=== PATIENT | female | born 1930 | race Hispanic/Latino ===

== ENCOUNTER 2016-09-03 11:49 | Inpatient (IN) | payer MEDICARE ==
[2016-09-03] MEDS ORDERED: Morphine 2 mg/ml ISec IVP STA (12:08)
--- NOTE | 2016-09-03 12:14 | ED PDOC ---
Arrival/HPI - General Chief Complaint: Finger,Hand,&Wrist Time Seen by Provider: 09/03/16 12:07 Historian: Patient, Family (daughter in law) - History of Present Illness Narrative History of Present Illness (Text): 09/03/16 12:05 This 86 yo female with pmh A-Fib, presents to this ED c/o left wrist injury x 2 hours. Patent stated she has been having left ankle pain x 3 weeks, and she feels this ankle pain caused her to fall. Denies head injury. Patient admits mild sob x 3 weeks. Denies other complains. Denies cp, hemoptysis, abdominal pain, back pain, hip pain, or abnormal gait. Time/Duration: Other (see HPI) Context: Home Past Medical History - Provider Review Nursing Documentation Reviewed: Yes - Reproductive Menopause: No - Cardiac Hx Atrial Fibrillation: Yes Hx Hypertension: Yes - Pulmonary Hx Chronic Obstructive Pulmonary Disease (COPD): Yes - Psychiatric Hx Substance Use: No - Surgical History Hx Appendectomy: Yes Hx Hysterectomy: Yes Family/Social History - Physician Review Nursing Documentation Reviewed: Yes Family/Social History: No Known Family HX Smoking Status: Current Some Days Smoker Hx Alcohol Use: Yes Frequency of alcohol use: Socially Hx Substance Use: No Allergies/Home Meds Allergies/Adverse Reactions: Allergies No Known Allergies Allergy (Verified 09/03/16 11:56) Home Medications: Home Meds Medication Instructions Recorded Confirmed Atenolol [Tenormin] 25 mg PO DAILY 09/03/16 09/03/16 Valsartan/Hydrochlorothiazide 1 tab PO DAILY 09/03/16 09/03/16 [Valsartan-Hctz 80-12.5 mg Tab] Warfarin [Coumadin] 5 mg PO DAILY 09/03/16 09/03/16 amLODIPine [Norvasc] 5 mg PO DAILY 09/03/16 09/03/16 methylPREDNISolone [Medrol] 4 mg PO MWF 09/03/16 09/03/16 Review of Systems - Review of Systems Constitutional: Normal. absent: Fatigue, Weight Change, Fevers Eyes: Normal ENT: Normal Respiratory: SOB. absent: Cough, Sputum Cardiovascular: Normal. absent: Chest Pain, Palpitations, Edema Gastrointestinal: Normal. absent: Abdominal Pain, Nausea, Vomiting Genitourinary Female: Normal. absent: Dysuria, Frequency, Hematuria Musculoskeletal: Other (see hpi) Skin: Normal. absent: Rash Neurological: absent: Headache, Dizziness, Focal Weakness, Gait Changes, Speech Changes, Facial Droop Endocrine: Normal Hemo/Lymphatic: Normal Psychiatric: Normal Physical Exam Vital Signs Temp Pulse Resp BP Pulse Ox 09/03/16 17:00 92 H 18 158/59 H 98 09/03/16 15:00 68 18 135/88 98 09/03/16 13:40 52 L 16 148/59 L 98 09/03/16 11:49 97.9 F 54 L 18 159/89 H 97 Temperature: Afebrile Blood Pressure: Normal Pulse: Regular Respiratory Rate: Normal Appearance: Positive for: Well-Appearing, Non-Toxic, Comfortable Pain Distress: None Mental Status: Positive for: Alert and Oriented X 3 - Systems Exam Head: Present: Atraumatic, Normocephalic Pupils: Present: PERRL Extroacular Muscles: Present: EOMI Conjunctiva: Present: Normal Mouth: Present: Moist Mucous Membranes Neck: Present: Normal Range of Motion. No: Meningeal Signs Respiratory/Chest: Present: Clear to Auscultation, Good Air Exchange. No: Respiratory Distress, Accessory Muscle Use, Wheezes, Retracting, Rhonchi Cardiovascular: Present: Regular Rate and Rhythm, Normal S1, S2. No: Murmurs Abdomen: Present: Normal Bowel Sounds. No: Tenderness, Distention, Peritoneal Signs Back: Present: Normal Inspection. No: CVA Tenderness Upper Extremity: Present: NORMAL PULSES, Tenderness, Swelling, Neurovascularly Intact, Capillary Refill < 2s, Other ((+) Left wrist joint mild deformity). No : Cyanosis, Edema, Erythema Lower Extremity: Present: NORMAL PULSES. No: Edema, CALF TENDERNESS Neurological: Present: GCS=15, CN II-XII Intact, Speech Normal Skin: Present: Warm, Dry, Normal Color. No: Rashes Psychiatric: Present: Alert, Oriented x 3, Normal Insight, Normal Concentration Medical Decision Making ED Course and Treatment: 09/03/16 15:00 Dr. Gleason at bedside. I spoke with Dr. Grace regarding labs, imaging finding. He agrees with admission Re-evaluation Time: 15:50 Reassessment Condition: Re-examined, Improving,but remains with symptoms - Lab Interpretations Microbiology Results: Microbiology Results 09/03/16 14:30 Blood Blood Culture - Preliminary NO GROWTH AFTER 4 DAYS 09/03/16 14:15 Blood Blood Culture - Preliminary NO GROWTH AFTER 4 DAYS Lab Results: 09/03/16 12:41 09/03/16 12:41 Lab Results 09/03/16 14:30: pO2 54, VBG pH 7.40, VBG pCO2 54.0, VBG HCO3 33.4 H, VBG Total CO2 35.1 H, VBG O2 Sat (Calc) 91.1 H, VBG Base Excess 7.0 H, VBG Potassium 3.3 L , Glucose 117 H, Lactate 1.2, FiO2 21.0, Sodium 128.0 L, Chloride 92.0 L, Venous Blood Potassium 3.3 L 09/03/16 12:41: C-React Prot High Sens 1.36 09/03/16 12:41: PT 19.8 H, INR 1.83 H, APTT 33.4 H 09/03/16 12:41: Sodium 128 L, Potassium 3.8, Chloride 87 L, Carbon Dioxide 31, Anion Gap 14, BUN 8, Creatinine 0.5, Est GFR ( Amer) > 60, Est GFR (Non- Af Amer) > 60, Random Glucose 115 H, Calcium 9.4, Total Bilirubin 0.9, AST 41 H , ALT 33, Alkaline Phosphatase 70, Lactate Dehydrogenase 633, Total Creatine Kinase 177, Troponin I < 0.01, NT-Pro-B Natriuret Pep 2040 H, Total Protein 7.5 , Albumin 4.1, Globulin 3.4, Albumin/Globulin Ratio 1.2 09/03/16 12:41: WBC 13.6 H, RBC 4.20, Hgb 13.7, Hct 38.4, MCV 91.4, MCH 32.6, MCHC 35.7, RDW 12.5, Plt Count 368, MPV 9.4, Gran % 85.0 H, Lymph % (Auto) 7.3 L , [place] % (Auto) 7.5 H, Eos % (Auto) 0.1 L, Baso % (Auto) 0.1, Gran # 11.52 H, Lymph # 1.0 L, [place] # 1.0 H, Eos # 0.0, Baso # 0.01, ESR 11 - RAD Interpretation Radiology Orders: 09/03/16 12:08 WRIST, LEFT 3 VIEWS [RAD] Stat 09/03/16 12:13 CHEST PORTABLE [RAD] Stat 09/03/16 14:12 WRIST, LEFT 3 VIEWS [RAD] Stat - Medication Orders Current Medication Orders: Albuterol/Ipratropium (Duoneb 3 Mg/0.5 Mg (3 Ml) Ud) 3 ml IH Q4H PRN PRN Reason: Wheezing Amlodipine Besylate (Norvasc) 5 mg PO DAILY [facility] Last Admin: 09/08/16 09:11 Dose: 5 mg Atenolol (Tenormin) 25 mg PO DAILY [facility] Last Admin: 09/08/16 09:11 Dose: 25 mg Carvedilol (Coreg) 3.125 mg PO BID [facility] Last Admin: 09/08/16 09:09 Dose: 3.125 mg Sodium Chloride (Hypertonic Saline 3%) 500 mls @ 30 mls/hr IV .[id number] [facility] Last Admin: 09/08/16 06:36 Dose: 30 mls/hr Ketorolac Tromethamine (Toradol) 15 mg IM Q6 PRN PRN Reason: pain unrelieved with Percocet Stop: 09/08/16 18:28 Last Admin: 09/07/16 21:27 Dose: 15 mg Magnesium Oxide (Mag-Ox) 400 mg PO BID [facility] Last Admin: 09/08/16 09:10 Dose: 400 mg Methylprednisolone (Medrol) 4 mg PO DAILY [facility] Last Admin: 09/08/16 09:10 Dose: 4 mg Potassium Chloride (Klor-Con 10) 10 meq PO BRK [facility] Last Admin: 09/08/16 09:10 Dose: 10 meq Potassium Chloride (K-Dur 20 Meq Er Tab) 20 meq PO BID [facility] Last Admin: 09/08/16 09:10 Dose: 20 meq Warfarin Sodium (Coumadin) 5 mg PO 1800 [facility]NAZ PRN Reason: Protocol Last Admin: 09/07/16 18:10 Dose: 5 mg Discontinued Medications Bupivacaine HCl (Marcaine 0.5%) 2 ml IJ STAT STA Stop: 09/03/16 13:45 Last Admin: 09/03/16 14:00 Dose: 2 ml Comments: given by Furosemide (Lasix) 20 mg IVP DAILY [facility] Last Admin: 09/04/16 14:00 Dose: 20 mg Hydrochlorothiazide (Microzide) 12.5 mg PO DAILY [facility] Last Admin: 09/04/16 10:22 Dose: 12.5 mg Piperacillin Sod/Tazobactam Sod (Zosyn 3.375 In Ns 100ml) 100 mls @ 200 mls/hr IVPB STAT STA PRN Reason: Protocol Stop: 09/03/16 14:47 Last Admin: 09/03/16 15:19 Dose: 200 mls/hr Sodium Chloride (Hypertonic Saline 3%) 500 mls @ 10 mls/hr IV .Q24H [facility] Lidocaine HCl (Lidocaine 1% (20ml)) Confirm Administered Dose 20 ml .ROUTE .STK- MED ONE Stop: 09/03/16 13:55 Losartan Potassium (Cozaar) 50 mg PO DAILY [facility] Last Admin: 09/06/16 10:58 Dose: 50 mg Morphine Sulfate (Morphine) 2 mg IVP STAT STA Stop: 09/03/16 12:09 Last Admin: 09/03/16 12:28 Dose: 2 mg Re-Assess: [facility] Pain Assessment Document 09/03/16 13:28 [facility] (Rec: 09/03/16 15:22 [facility]-[id number]) Pain Reassessment Is this a pain reassessment? Yes Morphine Sulfate (Morphine) 2 mg IVP Q4H [facility]NAZ Stop: 09/04/16 09:00 Ondansetron HCl (Zofran Inj) 4 mg IVP STAT STA Stop: 09/03/16 12:18 Last Admin: 09/03/16 12:32 Dose: 4 mg Ondansetron HCl (Zofran Inj) 4 mg IVP Q4H [facility]NA[facility] Stop: 09/04/16 09:00 Ondansetron HCl (Zofran Inj) 4 mg IVP Q4H PRN PRN Reason: Nausea/Vomiting Stop: 09/04/16 09:00 Oxycodone/Acetaminophen (Percocet 5/325 Mg Tab) 1 tab PO Q6H PRN PRN Reason: Pain, moderate (4-7) Stop: 09/06/16 18:27 Last Admin: 09/05/16 16:04 Dose: 1 tab Re-Assess: [facility] Pain Assessment Document 09/05/16 17:04 ML[facility] (Rec: 09/05/16 18:13 [email or web address] [id number]) Pain Reassessment Is this a pain reassessment? Yes Presence of Pain Presence of Pain No Oxycodone/Acetaminophen (Percocet 5/325 Mg Tab) 1 tab PO ONCE STA Stop: 09/06/16 21:32 Last Admin: 09/06/16 21:54 Dose: 1 tab Pneumococcal Polyvalent Vaccine (Pneumovax 23 Vaccine) 0.5 ml IM .ONCE ONE Stop: 09/03/16 19:24 Potassium Chloride (Potassium Chloride Oral Soln) 40 meq PO ONCE ONE Stop: 09/05/16 09:16 Last Admin: 09/05/16 09:45 Dose: 40 meq Disposition/Present on Arrival - Present on Arrival Any Indicators Present on Arrival: No History of DVT/PE: No History of Uncontrolled Diabetes: No Urinary Catheter: No History of Decub. Ulcer: No History Surgical Site Infection Following: None - Disposition Have Diagnosis and Disposition been Completed?: Yes Diagnosis: CHF (congestive heart failure), Cellulitis, Colles' fracture of left radius Disposition: HOSPITALIZED Disposition Time: 15:49 Patient Plan: Admission Patient Problems: Current Active Problems Problem Status Onset CHF (congestive heart failure) Acute Cellulitis Acute Colles' fracture of left radius Acute Hyponatremia Acute Atrial fibrillation Chronic COPD (chronic obstructive pulmonary disease) Chronic Hypertension Chronic Condition: STABLE
[2016-09-03 12:57] VITALS: BMI 18.3
[2016-09-03 12:57] LABS: ALB/GLOB RATIO 1.2 (1.1-1.8); ALBUMIN 4.1 g/dL (3.0-4.8); ALT/SGPT 33 U/L (7-56); AST/SGOT 41 U/L (15-39); BLOOD UREA NITROGEN 8 mg/dL (7-21); CALCIUM 9.4 mg/dL (8.4-10.5); GFR AFRICAN-AMERICAN > 60; GFR NON-AFRICAN AMERICAN > 60
[2016-09-03 13:08] LABS: B-TYPE NATRIURETIC PEPTIDE 2040 pg/mL (0-450); INR 1.83 (0.93-1.08); PARTIAL THROMBOPLASTIN TIME 33.4 Seconds (23.7-30.8); PROTHROMBIN TIME 19.8 Seconds (9.9-11.8)
[2016-09-03 13:10] LABS: TROPONIN I < 0.01 ng/mL
[2016-09-03] MEDS ORDERED: Bupivacaine 0.5% Inj(30mL) IJ STA (13:44)
[2016-09-03] MEDS ORDERED: Lidocaine 1% Inj (20ml) ONE (13:54)
[2016-09-03 14:01] LABS: BASO # 0.01 K/mm3 (0.0-2.0); BASO % 0.1 % (0.0-3.0); EOS % 0.1 % (1.5-5.0); GRAN # 11.52 (1.4-6.5); HEMOGLOBIN 13.7 gm/dL (12.0-16.0); LYMPH % 7.3 % (22.0-35.0); MEAN CELL VOLUME 91.4 fL (80.0-105.0); MEAN CORPUSCULAR HEMOGLOBIN 32.6 pg (25.0-35.0); MEAN CORPUSCULAR HGB CONC 35.7 g/dl (31.0-37.0); MEAN PLATELET VOLUME 9.4 fl (7.0-11.0); MONO % 7.5 % (1.0-6.0); PLATELET COUNT 368 10^3/uL (120.0-450.0); RED CELL DISTRIBUTION WIDTH 12.5 % (11.5-14.5); WHITE BLOOD COUNT 13.6 10^3/ul (4.5-11.0)
--- NOTE | 2016-09-03 14:09 | RAD ---
PROCEDURE: Left Wrist Radiographs. HISTORY: pain COMPARISON: None. FINDINGS: BONES: Current study reveals a comminuted/impacted and displaced fracture of the distal left radius. Fracture line extends into the articular surface the radiocarpal articulation. There is also a comminuted probably impacted fracture of the distal left radius. Dorsal displacement of the fracture fragments. Due to overlap fragments there is partial obscuration of the navicular and lunate. The possibility of fracture these carpal bones cannot be excluded. Note also made of tiny on soft tissue calcifications within the dorsal soft tissues possibly representing some old posttraumatic mineralization sequela. Mild diffuse demineralization. JOINTS: Moderate to fairly significant triscaphe DJD as well as DJD of the greater multangular and 1st metacarpal. Multi articular DJD throughout the remainder of the joint spaces particularly the DIP joints consistent with primary osteoarthritis. SOFT TISSUES: Mild moderate diffuse circumferential soft tissue swelling about the wrist OTHER FINDINGS: None. IMPRESSION: Comminuted impacted fractures of the distal radius and ulna with on extension of fracture line into the radiocarpal articulation. There is dorsal displacement of the fracture fragments Multi articular DJD. See above discussion for additional details
[2016-09-03] MEDS ORDERED: Piperacillin/Tazobact 3.375 gm 100 ML IVPB STA (14:18)
[2016-09-03 15:19] LABS: VENOUS BLOOD GAS PO2 54 mm/Hg (30-55)
--- NOTE | 2016-09-03 17:04 | RAD ---
PROCEDURE: Left Wrist Radiographs. Three views of the left wrist performed through a radiopaque cast which obscures fine soft tissue and bone detail. HISTORY: POST REDUCTION COMPARISON: Comparison made with earlier film same day. FINDINGS: BONES: Previously noted comminuted impacted fractures of the distal left radius and ulna again noted. . There is improved anatomic alignment with lesser dorsal angulation of the distal fragments. . JOINTS: Swelling multi articular DJD SOFT TISSUES: Surrounding soft tissue OTHER FINDINGS: None. IMPRESSION: Status post closed reduction fractures of the distal radius and ulna with improved anatomic alignment
[2016-09-03] MEDS ORDERED: Albuterol-Ipratrop 3 mg / 0.5 (3 ml) UD IH PRN (17:09)
[2016-09-03] MEDS ORDERED: Morphine 4 mg/ml ISec IVP SCH (17:15)
[2016-09-03 17:24] LABS: PH,URINE 7.5 (4.7-8.0); URINE BILIRUBIN NEGATIVE (NEGATIVE); URINE BLOOD NEGATIVE (NEGATIVE); URINE GLUCOSE (UA) NEGATIVE (NEGATIVE); URINE LEUKOCYTE ESTERASE TRACE Leu/uL (NEGATIVE); URINE NITRATE NEGATIVE (NEGATIVE); URINE PROTEIN NEGATIVE mg/dL (<30 mg/dL); URINE UROBILINOGEN 0.2 E.U./dL (<1 E.U./dL)
--- NOTE | 2016-09-03 17:24 | RAD ---
HISTORY: Status post fall. COMPARISON: No prior study available comparison. FINDINGS: LUNGS: Note that the examination is slightly limited due to partial obscuration of the medial lung apices by overlying mandible and facial soft tissue artifact. Biapical pleural calcifications could be secondary to calcified granulomata and/or pleural-based right calcifications. Clinical correlation recommended. See anesthesia margin is slightly increasing coarse within few scattered peribronchial cuffing changes. Rule out sequela of reactive/inflammatory airway disease or viral illness. PLEURA: No significant pleural effusion identified, no pneumothorax apparent. CARDIOVASCULAR: Heart appears enlarged. Aorta is slightly ectatic and uncoiled. OSSEOUS STRUCTURES: Mild degenerative osteoarthritis of both shoulder girdles. There also appears to be mild multilevel degenerative spondylosis of the thoracic spine VISUALIZED UPPER ABDOMEN: Normal. OTHER FINDINGS: None. IMPRESSION: Slightly limited due to partial obscuration of the medial lung apices by overlying mandible and facial soft tissue artifact. Biapical pleural calcifications could be secondary to calcified granulomata and/or pleural-based right calcifications. Clinical correlation recommended. See anesthesia margin is slightly increasing coarse within few scattered peribronchial cuffing changes. Rule out sequela of reactive/inflammatory airway disease or viral illness.
[2016-09-03 17:25] LABS: URINE APPEARANCE CLEAR (CLEAR); URINE COLOR YELLOW (YELLOW)
[2016-09-03 17:31] LABS: URINE AMORPHOUS SEDIMENT TRACE
[2016-09-03] MEDS ORDERED: Morphine 2 mg/ml ISec IVP PRN (17:39)
[2016-09-03] MEDS: Oxycodone/Acetaminophen 5/325 mg Tab PO PRN (18:40)
--- NOTE | 2016-09-03 19:05 | CARD ---
APPROVED REPORT EKG Measurement Heart [id number] <Conclusion> Atrial fibrillation with slow ventricular response Q wave in lateral leads Base line artefact, please repeat. Abnormal ECG
[2016-09-03] MEDS ORDERED: Pneumococcal 23-Valent Vaccine IM ONE (19:23)
[2016-09-04] MEDS: Oxycodone/Acetaminophen 5/325 mg Tab PO PRN ×2 (00:35→10:21)
--- NOTE | 2016-09-04 12:31 | CP.PCM.HP ---
History of Present Illness - History of Present Illness History of Present Illness: 86 yo female adm [facility] s/p fall wrist fx. Noted to have bilat peripheral edema and hyponatremia, adm for further eval and mgmt, Denies cp, no sob Present on Admission - Present on Admission Any Indicators Present on Admission: No Review of Systems - Constitutional Constitutional: Weakness - EENT Eyes: Loss of Vision Ears: Decreased Hearing - Cardiovascular Cardiovascular: Pedal Edema - Respiratory Respiratory: Dyspnea on Exertion - Gastrointestinal Gastrointestinal: Change in Bowel Habits - Musculoskeletal Musculoskeletal: Arthralgias - Neurological Neurological: Abnormal Hearing, Weakness Past Patient History - Past Social History Smoking Status: Light Smoker < 10 Cigarettes Daily - CARDIAC Hx Cardia Arrhythmia: Yes (a fib) Hx Hypertension: Yes Hx Peripheral Edema: Yes (left ankle +1) - PULMONARY Hx Chronic Obstructive Pulmonary Disease (COPD): Yes - HEENT Hx HEENT Problems: Yes (eyeglasses) Hx Macular Degeneration: Yes - INTEGUMENTARY Other/Comment: buttocks slightly reddened, b/l arms multiple purpil discolorations, slight redness to left ankle - MUSCULOSKELETAL/RHEUMATOLOGICAL Hx Falls: Yes (fell today) Hx Unsteady Gait: Yes (walker) Other/Comment: left ankle pain, left wrist fx today soft cast with mei wrap intact - PSYCHIATRIC Hx Substance Use: No - SURGICAL HISTORY Hx Appendectomy: Yes Hx Hysterectomy: Yes Meds Allergies/Adverse Reactions: Allergies Allergy/AdvReac Type Severity Reaction Status Date / Time No Known Allergies Allergy Verified 09/03/16 11:56 Physical Exam - Constitutional Appears: No Acute Distress - Head Exam Head Exam: ATRAUMATIC, NORMAL INSPECTION, NORMOCEPHALIC - Eye Exam Eye Exam: EOMI, PERRL - ENT Exam ENT Exam: Normal Exam - Neck Exam Neck exam: Positive for: Full Rom - Respiratory Exam Respiratory Exam: Rales - Cardiovascular Exam Cardiovascular Exam: Irregular Rhythm, REGULAR RHYTHM, Systolic Murmur - GI/Abdominal Exam GI & Abdominal Exam: Normal Bowel Sounds - Back Exam Additional comments: cast/splint rue intact - Neurological Exam Neurological exam: Alert, Oriented x3 - Skin Skin Exam: Dry, Warm Results - Vital Signs Recent Vital Signs: Last Vital Signs Temp 98.6 F 09/04/16 07:26 Pulse 64 09/04/16 10:23 Resp 21 09/04/16 07:26 BP 118/74 09/04/16 10:23 Pulse Ox 92 L 09/04/16 07:26 - Labs Result Diagrams: 09/03/16 12:41 09/03/16 12:41 Labs: Laboratory Results - last 24 hr 09/03/16 17:00 Urine Color Yellow Urine Appearance Clear Urine pH 7.5 Ur Specific [place] 1.010 Urine Protein Negative Urine Glucose (UA) Negative Urine Ketones Trace H Urine Blood Negative Urine Nitrate Negative Urine Bilirubin Negative Urine Urobilinogen 0.2 Ur Leukocyte Esterase Trace H Urine RBC TEST NOT PERFORMED Urine WBC 2 - 5 Ur Epithelial Cells 10 - 12 Amorphous Sediment Trace Assessment & Plan (1) Atrial fibrillation Status: Chronic (2) CHF (congestive heart failure) Status: Acute (3) Cellulitis Status: Acute (4) Colles' fracture of left radius Status: Acute (5) COPD (chronic obstructive pulmonary disease) Status: Chronic (6) Hyponatremia Status: Acute - Date & Time Date: 09/04/16 Time: 11:30
[2016-09-04] MEDS: Potassium Chloride 10 mEq ER Tab PO SCH (13:30)
--- NOTE | 2016-09-04 14:03 | CON ---
EMERGENCY CONSULT AND PROCEDURE REPORT HISTORY OF PRESENT ILLNESS: She is an 86-year-old, I was called as an emergency to see the patient with severely displaced and swollen left distal radius, where she is on Coumadin and she smokes and she has been having numbness of her fingers, accident happened when she fell at home this morning. No loss of consciousness. So, this is an urgent consult in the emergency room with the x-rays showing a severely dorsally displaced fracture with radial deviation and tenting of the skin over the ulnar. We did a hematoma block, put her on traction with the finger traps and with 10 pounds of weight and let it stretch out the distal radius fracture and ulnar fracture to perform ligamentotaxis. Once it looked straight, we did a partial reduction by putting dorsal pressure over the distal radius and palmar pressure on the proximal portion of the fracture until we heard a snap that indicated the fracture went back in place. Then, we put a compression dressing and a coaptation plaster of kathryn cast. X-rays showed improved position of the fracture and good neurovascular status. She had numbness prior to the reduction, but no numbness at this time, but she has extreme ecchymosis, which she is on Coumadin also, so she is being admitted to the medical doctor and watch her closely at [facility] and keep her elevated and observation and told the nurse to watch the circulation every couple of hours. FINAL DIAGNOSES: Dorsally and radially displaced distal left radius fracture and performed ligamentotaxis reduction with hematoma block and coaptation arm cast and follow her closely for the displaced dorsal radial and ulnar fractures with radial deviation. Juan Gleason DO
--- NOTE | 2016-09-05 05:09 | CON ---
An 86-year-old female in the emergency room on 09/03/2016. She had a highly displaced comminuted fracture of left distal radius with dorsal displacement on the lateral view and radial displacement on the AP view without the hematoma block. Because she had extensive ecchymosis, we gave a hematoma block with Marcaine and Xylocaine and did a closed reduction with ligamentotaxis with the help of finger traction, and we accomplished satisfactory reduction. After post-reduction x-rays were shown, we put in a coaptation [facility] splint and she has been admitted to the hospital for followup. FINAL DIAGNOSIS: Highly comminuted dorsally displaced and radially shortening fracture of the nondominant left distal radius. Juan Gleason DO
[2016-09-05 06:54] LABS: ALB/GLOB RATIO 1.2 (1.1-1.8); ALBUMIN 3.2 g/dL (3.0-4.8); ALT/SGPT 26 U/L (7-56); AST/SGOT 42 U/L (15-39); BLOOD UREA NITROGEN 9 mg/dL (7-21); CALCIUM 8.5 mg/dL (8.4-10.5); GFR AFRICAN-AMERICAN > 60; GFR NON-AFRICAN AMERICAN > 60
[2016-09-05 07:33] LABS: BASO # 0.02 K/mm3 (0.0-2.0); BASO % 0.2 % (0.0-3.0); EOS % 0.3 % (1.5-5.0); GRAN # 8.64 (1.4-6.5); GRAN % 77.5 % (50.0-68.0); HEMOGLOBIN 11.6 gm/dL (12.0-16.0); LYMPH # 1.2 (1.2-3.4); LYMPH % 10.9 % (22.0-35.0); MEAN CELL VOLUME 92.3 fL (80.0-105.0); MEAN CORPUSCULAR HEMOGLOBIN 31.9 pg (25.0-35.0); MEAN CORPUSCULAR HGB CONC 34.5 g/dl (31.0-37.0); MEAN PLATELET VOLUME 9.5 fl (7.0-11.0); MONO # 1.2 (0.1-0.6); MONO % 11.1 % (1.0-6.0); PLATELET COUNT 301 10^3/uL (120.0-450.0); RBC 3.64 10^6/uL (3.5-6.1); RED CELL DISTRIBUTION WIDTH 12.6 % (11.5-14.5); WHITE BLOOD COUNT 11.1 10^3/ul (4.5-11.0)
--- NOTE | 2016-09-05 07:36 | PQF CHF ---
This form is a permanent part of the medical record Dr. Grace, Just a reminder to specify type and severity of CHF present in this patient. Clarification of your documentation is requested to better reflect the severity of illness and intensity of treatment of your patient. Indicators present [x] Diagnosis of CHF and/or history of CHF [x] BNP > 200 [] Imaging Finding of Pulmonary Edema /Pleural Effusions [] Fluid/Volume Overload [x] Pitting edema [] Ejection Fraction < 40% (Indicative of Systolic Heart Failure) [] Ejection Fraction > 40% (Indicative of Diastolic Heart Failure) [x] Dyspnea / Orthopenea / Paroxysmal Nocturnal Dyspnea [] Other: treatment with lasix Location in the medical record that reflects the above clinical findings: [] Treatment Provided: [] PHYSICIAN'S RESPONSE Based on your medical judgment of the clinical indicators outlined above, are you treating this patient for a known or suspected: [] Acute CHF [] Systolic [] Diastolic [] Combined [] Chronic CHF [] Systolic [] Diastolic [] Combined [x] Acute on Chronic CHF []Systolic [] Diastolic [x] Combined [] CHF due hypertension [] Acute systolic []Chronic systolic [] Acute/ chronic systolic [] Other, please indicate: [] [] If Unable to Determine, please check the box, sign and date. Present On Admission (POA) Indicator: [] Present at the time of admission [] Not present at the time of admission [] Clinically Undetermined In responding to this query, please exercise your independent professional judgment. The fact that a question is asked does not imply that any particular answer is desired or expected. Thank you for your clarification on this documentation. If you have any questions please call:[ ] * Thank you, [ ]Forrest Hyde [facility] #[id number] delivery specialist [employer]
[2016-09-05] MEDS: Potassium Chloride 10 mEq ER Tab PO SCH (08:08)
[2016-09-05] MEDS ORDERED: Potassium Chloride 40 mEq/30 ml LIQ UD PO ONE (09:15)
[2016-09-05 14:12] LABS: MAGNESIUM 1.6 mg/dL (1.7-2.2); URIC ACID 3.7 mg/dL (2.5-6.2)
--- NOTE | 2016-09-05 14:15 | CP.PCM.PN ---
Subjective - Date & Time of Evaluation Date of Evaluation: 09/05/16 Time of Evaluation: 09:45 - Subjective Subjective: nad Objective - Vital Signs/Intake and Output Vital Signs (last 24 hours): Temp Pulse Resp BP Pulse Ox 98.4 F 55 L 20 136/61 95 09/05/16 07:57 09/05/16 10:00 09/05/16 07:57 09/05/16 09:46 09/05/16 07:57 Intake and Output: 09/05/16 09/05/16 06:59 18:59 Intake Total 240 Output Total 0 Balance 240 - Medications Medications: Current Medications Albuterol/Ipratropium (Duoneb 3 Mg/0.5 Mg (3 Ml) Ud) 3 ml IH Q4H PRN PRN Reason: Wheezing Amlodipine Besylate (Norvasc) 5 mg PO DAILY [facility] Last Admin: 09/05/16 09:46 Dose: 5 mg Atenolol (Tenormin) 25 mg PO DAILY [facility] Last Admin: 09/05/16 09:45 Dose: 25 mg Ketorolac Tromethamine (Toradol) 15 mg IM Q6 PRN PRN Reason: pain unrelieved with Percocet Stop: 09/08/16 18:28 Losartan Potassium (Cozaar) 50 mg PO DAILY [facility] Last Admin: 09/05/16 09:45 Dose: 50 mg Methylprednisolone (Medrol) 4 mg PO DAILY [facility] Last Admin: 09/05/16 09:45 Dose: 4 mg Oxycodone/Acetaminophen (Percocet 5/325 Mg Tab) 1 tab PO Q6H PRN PRN Reason: Pain, moderate (4-7) Stop: 09/06/16 18:27 Last Admin: 09/04/16 10:21 Dose: 1 tab Potassium Chloride (Klor-Con 10) 10 meq PO BRK [facility] Last Admin: 09/05/16 08:08 Dose: 10 meq Potassium Chloride (K-Dur 20 Meq Er Tab) 20 meq PO BID [facility] Warfarin Sodium (Coumadin) 5 mg PO 1800 SANAZ PRN Reason: Protocol Last Admin: 09/04/16 18:50 Dose: 5 mg - Labs Labs: 09/05/16 06:00 09/05/16 06:00 PT 19.8 Seconds (9.9-11.8) H 07/15/17 12:41 INR 1.83 (0.93-1.08) H 09/03/16 12:41 APTT 33.4 Seconds (23.7-30.8) H 09/03/16 12:41 - Respiratory Exam Respiratory Exam: Clear to Ausculation Bilateral, NORMAL BREATHING PATTERN - Cardiovascular Exam Cardiovascular Exam: REGULAR RHYTHM - GI/Abdominal Exam GI & Abdominal Exam: Soft, Normal Bowel Sounds - Extremities Exam Extremities Exam: Normal Inspection - Neurological Exam Neurological Exam: Alert, Awake - Skin Skin Exam: Dry, Normal Color, Warm Assessment and Plan (1) Atrial fibrillation Status: Chronic (2) CHF (congestive heart failure) Status: Acute (3) Cellulitis Status: Acute (4) Colles' fracture of left radius Status: Acute (5) COPD (chronic obstructive pulmonary disease) Status: Chronic (6) Hyponatremia Status: Acute - Assessment and Plan (Free Text) Plan: monitor lytes, hold diuretics, renal consult
[2016-09-05] MEDS: Oxycodone/Acetaminophen 5/325 mg Tab PO PRN (16:04)
[2016-09-05] MEDS: Potassium Chloride 20 mEq ER Tab PO SCH (17:17)
--- NOTE | 2016-09-06 02:42 | CON ---
DATE: 09/05/2016 REASON FOR CONSULTATION: 1. Hyponatremia 2. Hypokalemia. HISTORY OF PRESENT ILLNESS: An 86-year-old lady previously unknown to me, admitted on 09/03/2016, status post fall at home. Patient sustained fracture of the left wrist. Patient gave a history of shortness of breath for 3 weeks prior to admission. She also gave a history of increasing lower extremity edema. She denied any chest pain, palpitation, cough, shortness of breath, fevers, chills. No history of any abdominal pain, nausea, vomiting. She was found to have a fracture of her left wrist, highly comminuted, dorsally displaced with radial shortening. Patient had manipulation and external fixation. Her sodium was 128 at the time of admission. Today, the sodium is 123, hence, consultation is requested. Patient was given Microzide 12.5 and Lasix 20 mg IV push yesterday. PAST MEDICAL/SURGICAL HISTORY: Atrial fibrillation, CHF, COPD, osteoarthritis. FAMILY HISTORY: Noncontributory. SOCIAL HISTORY: No smoking, no alcohol use, no IV drug abuse. ALLERGIES: No known drug allergies. MEDICATIONS AT HOME: Coumadin 5 mg daily, Medrol 4 mg Monday, Monday and Monday; atenolol 25, amlodipine 5, hydrochlorothiazide 80/12.5. REVIEW OF SYSTEMS: All systems are reviewed, pertinent positive as mentioned in the history of presenting illness, rest unremarkable. PHYSICAL EXAMINATION GENERAL: Elderly lady sitting in chair in mild distress. VITAL SIGNS: Blood pressure 136/61, heart rate 60, respiratory rate 16-18, temperature 98. HEENT: Normocephalic, atraumatic, positive pallor. NECK: Supple, no JVD. LUNGS: Bilateral equal air entry, bilateral distant breath sounds, no rales, no rhonchi. CARDIAC: S1, S2, irregularly irregular, no murmur, no rubs. ABDOMEN: Soft, nondistended, nontender, bowel sounds present.. EXTREMITIES: No lower extremity edema, positive dressing/cast of the left upper extremity. INTAKE AND OUTPUT: 1060/not charted. LABORATORY DATA: Sodium 123, potassium 3.3, chloride 184, CO2 31, BUN 9, creatinine 0.5, glucose 195, calcium 8.5. Total bilirubin 1.3, AST 42, ALT 26, albumin 3.2. TSH 0.45. WBC 11, hemoglobin 11.6, hematocrit 33.6, platelets 301. Urinalysis, yellow, clear, pH 7.5, specific gravity 1.010, protein negative, ketones trace, leukocyte esterase trace. Urine culture 50-10,000 multiple species. Blood cultures, no growth. ASSESSMENT: 1. Hyponatremia appears to be dilutional, urine specific gravity was 1.010 at the time of admission. 2. 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 3. Hypokalemia likely secondary to diuresis. 4. Underlying congestive heart failure. 5. Atrial fibrillation. 6. Hyperthyroidism (?). 7. Fractured left wrist. PLAN: 1. Discontinue hydrochlorothiazide and Lasix. 2. Chest urine sodium, urine osmolality and serum uric acid. 3. Replace potassium orally. 4. Check magnesium level. 5. Check T3. Thank you for the courtesy of this consultation. We will followup with this patient closely with you. Rissa Browne MD CLIFF
[2016-09-06 07:57] LABS: OSMOLALITY,URINE 184 mosm/kg (50-645)
[2016-09-06] MEDS: Potassium Chloride 10 mEq ER Tab PO SCH (09:58)
[2016-09-06] MEDS: Potassium Chloride 20 mEq ER Tab PO SCH ×2 (10:56→18:05)
[2016-09-06 14:21] LABS: ALBUMIN 3.1 g/dL (3.0-4.8); ALT/SGPT 27 U/L (7-56); AST/SGOT 35 U/L (15-39); BASO # 0.01 K/mm3 (0.0-2.0); BASO % 0.1 % (0.0-3.0); BLOOD UREA NITROGEN 9 mg/dL (7-21); CALCIUM 8.2 mg/dL (8.4-10.5); EOS % 0.3 % (1.5-5.0); GFR AFRICAN-AMERICAN > 60; GFR NON-AFRICAN AMERICAN > 60; GRAN # 10.68 (1.4-6.5); GRAN % 89.7 % (50.0-68.0); HEMOGLOBIN 11.5 gm/dL (12.0-16.0); LYMPH # 0.5 (1.2-3.4); LYMPH % 4.4 % (22.0-35.0); MEAN CELL VOLUME 92.7 fL (80.0-105.0); MEAN CORPUSCULAR HEMOGLOBIN 32.3 pg (25.0-35.0); MEAN CORPUSCULAR HGB CONC 34.8 g/dl (31.0-37.0); MEAN PLATELET VOLUME 9.1 fl (7.0-11.0); MONO # 0.7 (0.1-0.6); MONO % 5.5 % (1.0-6.0); PLATELET COUNT 325 10^3/uL (120.0-450.0); RBC 3.56 10^6/uL (3.5-6.1); RED CELL DISTRIBUTION WIDTH 12.5 % (11.5-14.5); WHITE BLOOD COUNT 11.9 10^3/ul (4.5-11.0)
--- NOTE | 2016-09-06 15:29 | CP.PCM.PN ---
Subjective - Date & Time of Evaluation Date of Evaluation: 09/06/16 Time of Evaluation: 15:15 - Subjective Subjective: nad, no cp, no sob Objective - Vital Signs/Intake and Output Vital Signs (last 24 hours): Temp Pulse Resp BP Pulse Ox 98.6 F 60 20 125/68 96 09/06/16 07:55 09/06/16 10:58 09/06/16 07:55 09/06/16 10:58 09/06/16 07:55 Intake and Output: 09/06/16 09/06/16 06:59 18:59 Intake Total 120 Balance 120 - Medications Medications: Current Medications Albuterol/Ipratropium (Duoneb 3 Mg/0.5 Mg (3 Ml) Ud) 3 ml IH Q4H PRN PRN Reason: Wheezing Amlodipine Besylate (Norvasc) 5 mg PO DAILY [facility] Last Admin: 09/06/16 10:57 Dose: 5 mg Atenolol (Tenormin) 25 mg PO DAILY [facility] Last Admin: 09/06/16 10:58 Dose: 25 mg Sodium Chloride (Hypertonic Saline 3%) 500 mls @ 10 mls/hr IV .Q24H [facility] Ketorolac Tromethamine (Toradol) 15 mg IM Q6 PRN PRN Reason: pain unrelieved with Percocet Stop: 09/08/16 18:28 Methylprednisolone (Medrol) 4 mg PO DAILY [facility] Last Admin: 09/06/16 10:57 Dose: 4 mg Oxycodone/Acetaminophen (Percocet 5/325 Mg Tab) 1 tab PO Q6H PRN PRN Reason: Pain, moderate (4-7) Stop: 09/06/16 18:27 Last Admin: 09/05/16 16:04 Dose: 1 tab Potassium Chloride (Klor-Con 10) 10 meq PO BRK [facility] Last Admin: 09/06/16 09:58 Dose: 10 meq Potassium Chloride (K-Dur 20 Meq Er Tab) 20 meq PO BID [facility] Last Admin: 09/06/16 10:56 Dose: 20 meq Warfarin Sodium (Coumadin) 5 mg PO 1800 SANAZ PRN Reason: Protocol Last Admin: 09/05/16 17:17 Dose: 5 mg - Labs Labs: 09/06/16 14:08 09/06/16 14:08 PT 19.8 Seconds (9.9-11.8) H 07/15/17 12:41 INR 1.83 (0.93-1.08) H 09/03/16 12:41 APTT 33.4 Seconds (23.7-30.8) H 09/03/16 12:41 - Respiratory Exam Respiratory Exam: Clear to Ausculation Bilateral, NORMAL BREATHING PATTERN - Cardiovascular Exam Cardiovascular Exam: REGULAR RHYTHM - GI/Abdominal Exam GI & Abdominal Exam: Normal Bowel Sounds - Extremities Exam Extremities Exam: Normal Inspection - Neurological Exam Neurological Exam: Alert, Awake - Skin Skin Exam: Normal Color, Warm Assessment and Plan (1) Atrial fibrillation Status: Chronic (2) CHF (congestive heart failure) Status: Acute (3) Cellulitis Status: Acute (4) Colles' fracture of left radius Status: Acute (5) COPD (chronic obstructive pulmonary disease) Status: Chronic (6) Hyponatremia Status: Acute - Assessment and Plan (Free Text) Plan: start hypertonic saline 3% at 10ml/hr, monitor lytes, stop losartan
[2016-09-06] MEDS ORDERED: Sodium Chloride 3% 500 ML IV SCH (15:30)
[2016-09-06] MEDS: Sodium Chloride 3% 500 ML IV SCH (17:00)
[2016-09-06] MEDS: Magnesium Oxide 400 mg Tab UD PO SCH (17:59)
[2016-09-06] MEDS ORDERED: Oxycodone/Acetaminophen 5/325 mg Tab PO STA (21:31)
--- NOTE | 2016-09-07 04:41 | PN ---
DATE: 09/06/2016 SUBJECTIVE: The patient is currently seen lying comfortably supine in bed in . She is complaining of pain in her left upper extremity in the area where she had her left wrist fracture. The patient has a splint in place. MEDICATIONS: Medication list reviewed. The patient is currently on Coumadin, losartan, DuoNeb, K-Dur, Medrol, Norvasc, Percocet p.r.n., Tenormin, and Toradol p.r.n. OBJECTIVE: INTAKE/OUTPUT: Intake 875, output not charted. VITAL SIGNS: Blood pressure 125/68, pulse 60 and irregular, temperature 98.6, respiratory rate 20 with a pulse ox of 96%. HEENT: Shows her to be normocephalic and atraumatic. Conjunctivae are pink. Sclerae nonicteric. NECK: Supple. No neck vein distention. CHEST: Clear to auscultation and percussion. No rales, no rhonchi, no wheezing. CARDIOVASCULAR: Shows an irregular S1 and S2. No audible murmurs, rubs, or gallops noted. ABDOMEN: Soft. Nondistended, nontender. Bowel sounds normal. No rebound, no guarding, no masses. EXTREMITIES: Show no lower extremity cyanosis, clubbing, or edema. Positive left upper extremity immobilized. Fingers are ecchymotic and puffy. LABORATORY DATA AND IMAGING: CBC: White blood cell count today 11.9, hemoglobin is 11.5 with a platelet count of 325,000. Chemistries show a sodium, which has dropped further down from 128 to 123 to 120. Potassium level is 3.9, chloride is 85 with a BUN of 9 and a creatinine of 0.5. Uric acid is low normal at 3.7. Calcium is 8.2, magnesium level is 1.6. Liver enzymes are normal. Albumin is 3.1. Urine is unremarkable, urine osmolality was 184 with a urine sodium of 19. Microbiology: Blood culture is negative in 3 days. Urine positive, 50 to 100,000 colonies, multiple species, not a clean catch. ASSESSMENT: 1. Hyponatremia, this appears to be depletional and dilutional in nature. The patient had been on hydrochlorothiazide at home. Of note, her urine sodium is less than 20, and of note, her urine osmolality is extremely low. The patient states that she drinks copious amounts of liquid during the day, which include that of tea, coffee, diet Pepsi, and copious amounts of water. I did explain to her that she needs to decrease her p.o. fluid intake. In light of the depletional nature of her hyponatremia, I will start her cautiously on 3% saline at 30 mL an hour. There is no role for tolvaptan here as this does not appear to be syndrome of inappropriate antidiuretic hormone secretion. 2. Fractured left wrist, splinted. The patient is being followed by Orthopedics, no plans for any surgery. 3. Hypokalemia, resolved. 4. Mild hypomagnesemia. The patient will be started on magnesium supplements, magnesium oxide 400 mg twice a day. 5. History of atrial fibrillation. The patient continues on chronic anticoagulation. 6. History of chronic obstructive pulmonary disease, currently stable. 7. History of congestive heart failure, no evidence for congestive heart failure. The patient appears to be euvolemic. PLAN: 1. We will keep the patient off of diuretics at this point in time. On discharge, she should not go home with hydrochlorothiazide. 2. Thyroid function test reviewed. These appear to be normal. No evidence for hypothyroidism. 3. Atrial fibrillation, rate controlled. The patient remains on chronic anticoagulation, last INR was 1.83. 4. As noted above in assessment, the patient will be started on 3% saline until her sodium level corrects. 5. The patient to be placed on 1250 mL fluid restriction. 6. Continue to monitor accurate I's and O's and daily labs. Discussed with nursing staff on 3R. Tyler Singh MD CLIFF
[2016-09-07 06:34] LABS: INR 1.8 (0.93-1.08); PROTHROMBIN TIME 19.4 Seconds (9.9-11.8)
[2016-09-07 06:45] LABS: BASO # 0.01 K/mm3 (0.0-2.0); BASO % 0.1 % (0.0-3.0); EOS # 0.1 (0.0-0.7); EOS % 0.5 % (1.5-5.0); GRAN # 7.93 (1.4-6.5); GRAN % 81.2 % (50.0-68.0); HEMOGLOBIN 10.7 gm/dL (12.0-16.0); LYMPH # 0.7 (1.2-3.4); LYMPH % 7.5 % (22.0-35.0); MEAN CELL VOLUME 93.5 fL (80.0-105.0); MEAN CORPUSCULAR HEMOGLOBIN 31.8 pg (25.0-35.0); MEAN PLATELET VOLUME 9.4 fl (7.0-11.0); MONO % 10.7 % (1.0-6.0); PLATELET COUNT 331 10^3/uL (120.0-450.0); RBC 3.37 10^6/uL (3.5-6.1); RED CELL DISTRIBUTION WIDTH 12.8 % (11.5-14.5); WHITE BLOOD COUNT 9.8 10^3/ul (4.5-11.0)
[2016-09-07 06:51] LABS: ALB/GLOB RATIO 1.1 (1.1-1.8); ALBUMIN 3.1 g/dL (3.0-4.8); ALT/SGPT 28 U/L (7-56); AST/SGOT 32 U/L (15-39); BLOOD UREA NITROGEN 8 mg/dL (7-21); CALCIUM 8.3 mg/dL (8.4-10.5); GFR AFRICAN-AMERICAN > 60; GFR NON-AFRICAN AMERICAN > 60; MAGNESIUM 1.9 mg/dL (1.7-2.2)
[2016-09-07] MEDS: Potassium Chloride 10 mEq ER Tab PO SCH (09:00)
[2016-09-07] MEDS: Potassium Chloride 20 mEq ER Tab PO SCH ×2 (09:13→18:10)
[2016-09-07] MEDS: Magnesium Oxide 400 mg Tab UD PO SCH ×2 (09:14→18:10)
[2016-09-07] MEDS: Sodium Chloride 3% 500 ML IV SCH (09:16)
--- NOTE | 2016-09-07 14:05 | CP.PCM.PN ---
Subjective - Date & Time of Evaluation Date of Evaluation: 09/07/16 Time of Evaluation: 13:00 - Subjective Subjective: nad Objective - Vital Signs/Intake and Output Vital Signs (last 24 hours): Temp Pulse Resp BP Pulse Ox 97.8 F 60 22 162/71 H 98 09/07/16 06:00 09/07/16 09:14 09/07/16 06:00 09/07/16 09:14 09/07/16 06:00 Intake and Output: 09/07/16 09/07/16 06:59 18:59 Intake Total 1080 Output Total 775 Balance 305 - Medications Medications: Current Medications Albuterol/Ipratropium (Duoneb 3 Mg/0.5 Mg (3 Ml) Ud) 3 ml IH Q4H PRN PRN Reason: Wheezing Amlodipine Besylate (Norvasc) 5 mg PO DAILY [facility] Last Admin: 09/07/16 09:14 Dose: 5 mg Atenolol (Tenormin) 25 mg PO DAILY [facility] Last Admin: 09/07/16 09:13 Dose: 25 mg Carvedilol (Coreg) 3.125 mg PO BID [facility] Sodium Chloride (Hypertonic Saline 3%) 500 mls @ 30 mls/hr IV .[id number] [facility] Last Admin: 09/07/16 09:16 Dose: 30 mls/hr Ketorolac Tromethamine (Toradol) 15 mg IM Q6 PRN PRN Reason: pain unrelieved with Percocet Stop: 09/08/16 18:28 Magnesium Oxide (Mag-Ox) 400 mg PO BID [facility] Last Admin: 09/07/16 09:14 Dose: 400 mg Methylprednisolone (Medrol) 4 mg PO DAILY [facility] Last Admin: 09/07/16 09:14 Dose: 4 mg Potassium Chloride (Klor-Con 10) 10 meq PO BRK [facility] Last Admin: 09/07/16 09:00 Dose: 10 meq Potassium Chloride (K-Dur 20 Meq Er Tab) 20 meq PO BID [facility] Last Admin: 09/07/16 09:13 Dose: 20 meq Warfarin Sodium (Coumadin) 5 mg PO 1800 SANAZ PRN Reason: Protocol Last Admin: 09/06/16 17:59 Dose: 5 mg - Labs Labs: 09/07/16 05:00 09/07/16 05:00 PT 19.4 Seconds (9.9-11.8) H 09/07/16 05:00 INR 1.80 (0.93-1.08) H 09/07/16 05:00 APTT 33.4 Seconds (23.7-30.8) H 09/03/16 12:41 - Respiratory Exam Respiratory Exam: Clear to Ausculation Bilateral, NORMAL BREATHING PATTERN - Cardiovascular Exam Cardiovascular Exam: REGULAR RHYTHM - GI/Abdominal Exam GI & Abdominal Exam: Soft, Normal Bowel Sounds - Extremities Exam Extremities Exam: Normal Inspection - Neurological Exam Neurological Exam: Alert, Awake, Oriented x3 - Skin Skin Exam: Dry, Normal Color, Warm Assessment and Plan (1) Atrial fibrillation Status: Chronic (2) CHF (congestive heart failure) Status: Acute (3) Cellulitis Status: Acute (4) Colles' fracture of left radius Status: Acute (5) COPD (chronic obstructive pulmonary disease) Status: Chronic (6) Hyponatremia Status: Acute (7) Hypertension Status: Chronic - Assessment and Plan (Free Text) Plan: monitor lytes, continue hypertonic saline, start coreg 3.125mg bid for elevated bp, SW for dc planning
--- NOTE | 2016-09-07 15:36 | PN ---
An 86-year-old female with a highly comminuted displaced distal radius fracture of left nondominant hand and is being followed in the hospital for swelling of her left wrist fracture. It appears that this swelling is going*------*, but it is too early to change the cast as this accident only happened on 09/03/2016. We will follow her closely while she is in the hospital and see her in the office and plan changing the cast in 10 days. So, I will follow her here and make sure the family makes an appointment to see me when she gets out. Juan Gleason DO
--- NOTE | 2016-09-07 16:28 | PN ---
SUBJECTIVE: The patient is currently seen on 3R. She is entirely comfortable. She has less swelling in her left upper extremity. She has fracture of her left wrist with a splint in place. Her sodium level is up to 128 with the initiation of 3% saline. She is awaiting transfer to [facility] post correction of her sodium level. MEDICATIONS: Current medications include that of Coumadin; DuoNeb; hypertonic saline 3%, 30 mL an hour; K-Tabs; magnesium oxide; methylprednisolone; Norvasc; Tenormin; Toradol p.r.n. OBJECTIVE: INTAKE/OUTPUT: Intake 1200, output 775. VITAL SIGNS: Blood pressure 162/71, temperature 97.8, respiratory rate 22 with a pulse of 60. HEENT: Normocephalic, atraumatic. Conjunctivae are pink. Sclerae are nonicteric. NECK: Supple. No neck vein distention. CHEST: Clear to auscultation and percussion. No rales, rhonchi, or wheezing. CARDIOVASCULAR: Shows an irregular S1 and S2. No audible murmurs, rubs, or gallops noted. ABDOMEN: Soft, nondistended, nontender. Bowel sounds are normal. No rebound, no guarding, or masses. EXTREMITIES: No lower extremity cyanosis, clubbing, or edema. Left upper extremity mobilized with a splint. Her fingers are less swollen and puffy. LABORATORY DATA AND IMAGING: CBC: White blood cell count today 9.8, hemoglobin 10.7 with a platelet count of 331,000. Chemistry shows sodium, which is up to 128 from 120 on hypertonic saline, potassium 3.8, chloride 95, improved. BUN 8 with a creatinine of 0.4, glucose is 83, calcium 8.3, phosphorus normal at 2.9, magnesium normal at 1.9. Microbiology, all cultures are negative. Urine culture shows not a clean catch but multiple organisms. ASSESSMENT: 1. Hyponatremia, this is in the setting of the depletion and dilutional hyponatremia. The patient had been using hydrochlorothiazide at home. Her urine sodium was less than 20. Her urine osmolality was extremely low. The patient is a copious fluid and water drinker. We discussed the need for how to decrease the amount of fluid intake in her diet. She is currently on a fluid restriction. I am waiting for her sodium level to improve into the low 130s, at which point in time 3% saline may be discontinued, and the patient may be transferred to [facility] for further medical care. The situation here does not appear to be consistent with SIADH. 2. Fractured left wrist, which is splinted. The patient being followed by orthopedics, no plans for any surgery. 3. Hypokalemia, resolved. The patient continues potassium supplements. 4. Status post mild hypomagnesemia, resolved. 5. History of atrial fibrillation. The patient continues on chronic anticoagulation. 6. History of chronic obstructive pulmonary disease, currently stable. 7. History of congestive heart failure, presently no evidence for congestive heart failure. PLAN: 1. Discussed with nursing staff in detail. I would like to continue 3% until her sodium level approaches 135, at which point in time 3% can be discontinued. 2. I have asked the staff to remove the water pitcher from her room as the patient is on a 1250 mL fluid restriction. 3. Continue to monitor her PT/INR, the patient is on Coumadin. 4. Follow up with orthopedics. 5. Anticipate likely discharge to [facility] tomorrow once her sodium level has improved. Tyler Singh MD
[2016-09-08] MEDS: Sodium Chloride 3% 500 ML IV SCH (06:36)
[2016-09-08 07:18] LABS: ALT/SGPT 32 U/L (7-56); AST/SGOT 36 U/L (15-39); BLOOD UREA NITROGEN 10 mg/dL (7-21); CALCIUM 8.3 mg/dL (8.4-10.5); GFR AFRICAN-AMERICAN > 60; GFR NON-AFRICAN AMERICAN > 60
[2016-09-08] MEDS: Magnesium Oxide 400 mg Tab UD PO SCH ×2 (09:10→17:18)
[2016-09-08] MEDS: Potassium Chloride 10 mEq ER Tab PO SCH (09:10)
[2016-09-08] MEDS: Potassium Chloride 20 mEq ER Tab PO SCH ×2 (09:10→17:18)
--- NOTE | 2016-09-08 09:35 | CP.PCM.PN ---
Subjective - Date & Time of Evaluation Date of Evaluation: 09/08/16 Time of Evaluation: 09:15 - Subjective Subjective: oob in chair, nad Objective - Vital Signs/Intake and Output Vital Signs (last 24 hours): Temp Pulse Resp BP Pulse Ox 97.7 F 60 20 156/75 H 97 09/07/16 16:00 09/08/16 09:11 09/07/16 16:00 09/08/16 09:11 09/07/16 16:00 Intake and Output: 09/08/16 09/08/16 06:59 18:59 Intake Total 1320 Output Total 1125 Balance 195 - Medications Medications: Current Medications Albuterol/Ipratropium (Duoneb 3 Mg/0.5 Mg (3 Ml) Ud) 3 ml IH Q4H PRN PRN Reason: Wheezing Amlodipine Besylate (Norvasc) 5 mg PO DAILY [facility] Last Admin: 09/08/16 09:11 Dose: 5 mg Atenolol (Tenormin) 25 mg PO DAILY [facility] Last Admin: 09/08/16 09:11 Dose: 25 mg Carvedilol (Coreg) 3.125 mg PO BID [facility] Last Admin: 09/08/16 09:09 Dose: 3.125 mg Sodium Chloride (Hypertonic Saline 3%) 500 mls @ 30 mls/hr IV .[id number] [facility] Last Admin: 09/08/16 06:36 Dose: 30 mls/hr Ketorolac Tromethamine (Toradol) 15 mg IM Q6 PRN PRN Reason: pain unrelieved with Percocet Stop: 09/08/16 18:28 Last Admin: 09/07/16 21:27 Dose: 15 mg Magnesium Oxide (Mag-Ox) 400 mg PO BID [facility] Last Admin: 09/08/16 09:10 Dose: 400 mg Methylprednisolone (Medrol) 4 mg PO DAILY [facility] Last Admin: 09/08/16 09:10 Dose: 4 mg Potassium Chloride (Klor-Con 10) 10 meq PO BRK [facility] Last Admin: 09/08/16 09:10 Dose: 10 meq Potassium Chloride (K-Dur 20 Meq Er Tab) 20 meq PO BID [facility] Last Admin: 09/08/16 09:10 Dose: 20 meq Warfarin Sodium (Coumadin) 5 mg PO 1800 SANAZ PRN Reason: Protocol Last Admin: 09/07/16 18:10 Dose: 5 mg - Labs Labs: 09/07/16 05:00 09/08/16 05:50 PT 19.4 Seconds (9.9-11.8) H 09/07/16 05:00 INR 1.80 (0.93-1.08) H 09/07/16 05:00 APTT 33.4 Seconds (23.7-30.8) H 09/03/16 12:41 - Respiratory Exam Respiratory Exam: Clear to Ausculation Bilateral, NORMAL BREATHING PATTERN - Cardiovascular Exam Cardiovascular Exam: REGULAR RHYTHM - GI/Abdominal Exam GI & Abdominal Exam: Soft, Normal Bowel Sounds - Extremities Exam Extremities Exam: Normal Inspection - Neurological Exam Neurological Exam: Alert, Awake, Oriented x3 - Skin Skin Exam: Dry, Warm Assessment and Plan (1) Atrial fibrillation Status: Chronic (2) CHF (congestive heart failure) Status: Acute (3) Cellulitis Status: Acute (4) Colles' fracture of left radius Status: Acute (5) COPD (chronic obstructive pulmonary disease) Status: Chronic (6) Hyponatremia Status: Acute (7) Hypertension Status: Chronic - Assessment and Plan (Free Text) Plan: monitor lytes, bp, PT, SW for dc planning
--- NOTE | 2016-09-08 15:51 | PN ---
DATE: 09/08/2016 SUBJECTIVE: The patient is seen sitting in bed. She is eating lunch. She is awake. She is alert. She is comfortable. She denies any pain. PHYSICAL EXAMINATION: GENERAL: Elderly lady sitting in bed. VITAL SIGNS: Blood pressure 156/75, heart rate 60, respiratory rate 18, and temperature 98. HEENT: Normocephalic and atraumatic, positive pallor. NECK: Supple. No JVD. CARDIOPULMONARY: S1 and S2. Regular rate, and rhythm. No murmurs. No rubs. LUNGS: Bilateral equal air entry, bilateral equal expansion, distant breath sounds. ABDOMEN: Soft, nondistended, nontender, bowel sounds present. EXTREMITIES: Dressing of the left upper extremity. No lower extremity edema. INTAKE AND OUTPUT: 1880/1525. LABORATORY DATA: WBC 9.8, hemoglobin 10.7, hematocrit 32, and platelets 331. Sodium 128, potassium 4.3, chloride 98, CO2 25, BUN 10, creatinine 0.4, glucose 84, calcium 8.3, albumin 3.0, and corrected calcium is 9.0. Urine sodium 19, urine osmolality 184. Uric acid 3.7. CURRENT MEDICATIONS: 1. Coreg 3.125 b.i.d. 2. Coumadin. 3. DuoNeb. 4. Hypertonic saline at 3% at 30 mL per hour. 5. K-Dur 20 mEq b.i.d. 6. K-Kierra 10 mEq daily. 7. Magnesium oxide. 8. Prednisone. 9. Amlodipine 5. 10. Tenormin. ASSESSMENT: 1. Hyponatremia. 2. Fractured left wrist. 3. Hypokalemia. 4. Atrial fibrillation. 5. Chronic obstructive pulmonary disease. 6. Congestive heart failure. PLAN: 1. Continue 3% saline until sodium approaches 135. 2. Restrict p.o. fluids. 3. Continue Coumadin, monitor INR. 4. Avoid hydrochlorothiazide in the future. Rissa Browne MD
[2016-09-08 21:20] LABS: ALBUMIN 3.1 g/dL (3.0-4.8); ALT/SGPT 36 U/L (7-56); AST/SGOT 39 U/L (15-39); BLOOD UREA NITROGEN 13 mg/dL (7-21); CALCIUM 8.2 mg/dL (8.4-10.5); GFR AFRICAN-AMERICAN > 60; GFR NON-AFRICAN AMERICAN > 60
[2016-09-09] MEDS: Sodium Chloride 3% 500 ML IV SCH (01:47)
[2016-09-09 03:56] LABS: ALB/GLOB RATIO 1.1 (1.1-1.8); ALBUMIN 3.3 g/dL (3.0-4.8); ALT/SGPT 38 U/L (7-56); AST/SGOT 38 U/L (15-39); BLOOD UREA NITROGEN 9 mg/dL (7-21); CALCIUM 8.5 mg/dL (8.4-10.5); GFR AFRICAN-AMERICAN > 60; GFR NON-AFRICAN AMERICAN > 60
[2016-09-09] MEDS: Potassium Chloride 10 mEq ER Tab PO SCH (09:15)
[2016-09-09] MEDS: Potassium Chloride 20 mEq ER Tab PO SCH ×2 (09:15→17:12)
[2016-09-09] MEDS: Magnesium Oxide 400 mg Tab UD PO SCH ×2 (09:16→17:12)
[2016-09-09 09:28] LABS: ALB/GLOB RATIO 1.1 (1.1-1.8); ALBUMIN 3.6 g/dL (3.0-4.8); ALT/SGPT 33 U/L (7-56); AST/SGOT 34 U/L (15-39); BLOOD UREA NITROGEN 9 mg/dL (7-21); CALCIUM 8.6 mg/dL (8.4-10.5); GFR AFRICAN-AMERICAN > 60; GFR NON-AFRICAN AMERICAN > 60
[2016-09-09] MEDS ORDERED: Tolvaptan 15 MG TAB PO STA (10:23)
--- NOTE | 2016-09-09 11:13 | CP.PCM.PN ---
Subjective - Date & Time of Evaluation Date of Evaluation: 09/09/16 Time of Evaluation: 10:30 - Subjective Subjective: oob in chair, nad Objective - Vital Signs/Intake and Output Vital Signs (last 24 hours): Temp Pulse Resp BP Pulse Ox 97.9 F 60 20 134/79 97 09/09/16 06:00 09/09/16 09:18 09/09/16 06:00 09/09/16 09:18 09/09/16 06:00 Intake and Output: 09/09/16 09/09/16 06:59 18:59 Intake Total 900 Output Total 850 Balance 50 - Medications Medications: Current Medications Albuterol/Ipratropium (Duoneb 3 Mg/0.5 Mg (3 Ml) Ud) 3 ml IH Q4H PRN PRN Reason: Wheezing Amlodipine Besylate (Norvasc) 5 mg PO DAILY [facility] Last Admin: 09/09/16 09:16 Dose: 5 mg Atenolol (Tenormin) 25 mg PO DAILY [facility] Last Admin: 09/09/16 09:18 Dose: 25 mg Carvedilol (Coreg) 3.125 mg PO BID [facility] Last Admin: 09/09/16 09:14 Dose: 3.125 mg Magnesium Oxide (Mag-Ox) 400 mg PO BID [facility] Last Admin: 09/09/16 09:16 Dose: 400 mg Methylprednisolone (Medrol) 4 mg PO DAILY [facility] Last Admin: 09/09/16 09:16 Dose: 4 mg Potassium Chloride (Klor-Con 10) 10 meq PO BRK [facility] Last Admin: 09/09/16 09:15 Dose: 10 meq Potassium Chloride (K-Dur 20 Meq Er Tab) 20 meq PO BID [facility] Last Admin: 09/09/16 09:15 Dose: 20 meq Warfarin Sodium (Coumadin) 5 mg PO 1800 [facility] PRN Reason: Protocol Last Admin: 09/08/16 17:17 Dose: 5 mg - Labs Labs: 09/07/16 05:00 09/09/16 09:00 PT 19.4 Seconds (9.9-11.8) H 09/07/16 05:00 INR 1.80 (0.93-1.08) H 09/07/16 05:00 APTT 33.4 Seconds (23.7-30.8) H 09/03/16 12:41 - Respiratory Exam Respiratory Exam: Clear to Ausculation Bilateral, NORMAL BREATHING PATTERN - Cardiovascular Exam Cardiovascular Exam: REGULAR RHYTHM - GI/Abdominal Exam GI & Abdominal Exam: Soft, Normal Bowel Sounds - Extremities Exam Extremities Exam: Normal Inspection - Neurological Exam Neurological Exam: Alert, Awake, Oriented x3 Assessment and Plan (1) Atrial fibrillation Status: Chronic (2) CHF (congestive heart failure) Status: Acute (3) Cellulitis Status: Acute (4) Colles' fracture of left radius Status: Acute (5) COPD (chronic obstructive pulmonary disease) Status: Chronic (6) Hyponatremia Status: Acute (7) Hypertension Status: Chronic - Assessment and Plan (Free Text) Plan: monitor dheeraj hernandez dc'd, on samsca 15qd per renal, SW for dc planning
--- NOTE | 2016-09-09 15:49 | PN ---
SUBJECTIVE: The patient is seen sitting in chair. She is awake. She is alert. She is comfortable. She is eating breakfast. PHYSICAL EXAMINATION: GENERAL: Elderly lady, sitting in chair. VITAL SIGNS: Blood pressure 134/79, heart rate 60, respiratory rate 20, temperature 97.9. HEENT: Normocephalic, atraumatic. NECK: Supple, no JVD. LUNGS: Bilateral rhonchi, distant breath sounds, equal expansion. CARDIAC: S1, S2, regular rate and rhythm, no murmur, no rubs. ABDOMEN: Soft, nondistended, nontender, bowel sounds present. EXTREMITIES: No lower extremity edema. INTAKE AND OUTPUT: 1740/1550. LABORATORY DATA: WBC 9, hemoglobin 10.7, hematocrit 32, platelets 331. Sodium 129, potassium 4, chloride 95, CO2 26, BUN 9, creatinine of 0.4, glucose 114, calcium 8.6, albumin 3.6. CURRENT MEDICATIONS: Coreg 3.125 b.i.d., Coumadin, DuoNeb, 3% saline at 30 mL per hour, potassium 20 mEq b.i.d., magnesium oxide 400 b.i.d., Solu-Medrol 4 mg, and amlodipine 5, Tenormin 25. ASSESSMENT AND PLAN: 1. 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 2. History of smoking. 3. Hypertension. 4. History of atrial fibrillation. 5. Wrist fracture. PLAN: 1. Discontinue 3% saline. 2. Tolvaptan 15 mg today. 3. Monitor urine output. 4. Monitor sodium closely. Rissa Browne MD
[2016-09-09 16:41] LABS: BLOOD UREA NITROGEN 10 mg/dL (7-21); CALCIUM 8.7 mg/dL (8.4-10.5); GFR AFRICAN-AMERICAN > 60; GFR NON-AFRICAN AMERICAN > 60
[2016-09-10 07:31] LABS: ALBUMIN 3.2 g/dL (3.0-4.8); ALT/SGPT 37 U/L (7-56); AST/SGOT 41 U/L (15-39); BLOOD UREA NITROGEN 9 mg/dL (7-21); CALCIUM 8.8 mg/dL (8.4-10.5); GFR AFRICAN-AMERICAN > 60; GFR NON-AFRICAN AMERICAN > 60
[2016-09-10] MEDS: Potassium Chloride 20 mEq ER Tab PO SCH (09:04)
[2016-09-10] MEDS: Potassium Chloride 10 mEq ER Tab PO SCH (09:04)
[2016-09-10] MEDS: Magnesium Oxide 400 mg Tab UD PO SCH ×2 (09:04→17:15)
--- NOTE | 2016-09-10 09:24 | CP.PCM.PN ---
Subjective - Date & Time of Evaluation Date of Evaluation: 09/10/16 Time of Evaluation: 09:00 - Subjective Subjective: nad Objective - Vital Signs/Intake and Output Vital Signs (last 24 hours): Temp Pulse Resp BP Pulse Ox 97.7 F 56 L 20 177/97 H 98 09/09/16 16:00 09/10/16 09:05 09/09/16 16:00 09/10/16 09:05 09/09/16 16:00 Intake and Output: 09/10/16 09/10/16 06:59 18:59 Intake Total 1070 Output Total 1700 Balance -630 - Medications Medications: Current Medications Albuterol/Ipratropium (Duoneb 3 Mg/0.5 Mg (3 Ml) Ud) 3 ml IH Q4H PRN PRN Reason: Wheezing Amlodipine Besylate (Norvasc) 5 mg PO DAILY [facility] Last Admin: 09/10/16 09:05 Dose: 5 mg Atenolol (Tenormin) 25 mg PO DAILY [facility] Last Admin: 09/10/16 09:05 Dose: 25 mg Carvedilol (Coreg) 3.125 mg PO BID [facility] Last Admin: 09/10/16 09:03 Dose: 3.125 mg Magnesium Oxide (Mag-Ox) 400 mg PO BID [facility] Last Admin: 09/10/16 09:04 Dose: 400 mg Methylprednisolone (Medrol) 4 mg PO DAILY [facility] Last Admin: 09/10/16 09:04 Dose: 4 mg Potassium Chloride (Klor-Con 10) 10 meq PO BRK [facility] Last Admin: 09/10/16 09:04 Dose: 10 meq Potassium Chloride (K-Dur 20 Meq Er Tab) 20 meq PO BID [facility] Last Admin: 09/10/16 09:04 Dose: 20 meq Warfarin Sodium (Coumadin) 5 mg PO 1800 [facility] PRN Reason: Protocol Last Admin: 09/09/16 17:12 Dose: 5 mg - Labs Labs: 09/07/16 05:00 09/10/16 06:30 PT 19.4 Seconds (9.9-11.8) H 09/07/16 05:00 INR 1.80 (0.93-1.08) H 09/07/16 05:00 APTT 33.4 Seconds (23.7-30.8) H 09/03/16 12:41 - Respiratory Exam Respiratory Exam: Clear to Ausculation Bilateral, NORMAL BREATHING PATTERN - Cardiovascular Exam Cardiovascular Exam: REGULAR RHYTHM - GI/Abdominal Exam GI & Abdominal Exam: Soft, Normal Bowel Sounds - Back Exam Back Exam: NORMAL INSPECTION - Neurological Exam Neurological Exam: Alert, Awake, Oriented x3 - Skin Skin Exam: Dry, Warm Assessment and Plan (1) Atrial fibrillation Status: Chronic (2) CHF (congestive heart failure) Status: Acute (3) Cellulitis Status: Acute (4) Colles' fracture of left radius Status: Acute (5) COPD (chronic obstructive pulmonary disease) Status: Chronic (6) Hyponatremia Status: Acute (7) Hypertension Status: Chronic - Assessment and Plan (Free Text) Plan: continue monitor rosalio hernandez for dc planning
[2016-09-10 10:00] LABS: HDL CHOLESTEROL 66 mg/dL (29-60)
[2016-09-10 10:11] LABS: LDL CHOLESTEROL 71 mg/dL (0-129)
--- NOTE | 2016-09-10 11:02 | CP.PCM.PN ---
Subjective - Date & Time of Evaluation Date of Evaluation: 09/10/16 Time of Evaluation: 10:56 - Subjective Subjective: Follow up Nephrology Consultation Note covering for Dr Browne Assessment: Stable Hyponatremia iso-osmolar (serum osmol 294) with relatively hypotonic urine ( urine Na 19 and osmol 184) etiology not clear: improved withh 3% saline and tolvaptan HTN, fall, left wrist fracture suppressed TSH, anemia, A fib Plan No need for vaptans today. monitor serum Na. will repeat studies including osmol , lipid and SPEP oral fluid restriction as ordered. avoid correction in serum Na >6-8 meq/day avoid thiazide diuretics. Hypertension control with meds as ordered. Patient's ARB resumed. hold atenolol as pt started on coreg. HR on low side Glycemic control Further work up for as per primary team Thanks for allowing me to participate in care of your patient. Will follow patient with you. Please call if any Qs Dr Thad Dong Office: [phone] Subjective: Noted events overnight. Patients feels okay. Denies chest pain, palpitation, shortness of breath, leg swelling. No urinary complaints. has good appetite. she had fell at home, leading to left wrist fracture. Physical Examination: General Appearance: Comfortable, in no acute respiratory distress, co- operative. Vitals reviewed and noted as below Lungs: Normal respiratory rate/effort. Breath sounds bilateral equal and clear Heart: Normal rate. s1s2 normal. No rub or gallop. Extremities: no edema. left forearm in splint Neurological: Patient is alert, awake and oriented to person, place and time. No focal deficit. Strength bilateral appropriate and equal Skin: Warm and dry. Normal turgor. No rash. Palpitation: Normal elasticity for age Abdomen: Abdomen is soft. Bowel sounds +. There is no abdominal tenderness, no guarding/rigidity or organomegaly : kidney or bladder not palpable Labs/imaging reviewed. Past medical history, past surgical history, family history, social history, allergy reviewed Work up: Urine Na 19 urine osmol 184 uric acid 3.7 TGL 77 BNP 2000 serum osmol 294 TSH 0.45 Objective - Vital Signs/Intake and Output Vital Signs (last 24 hours): Temp Pulse Resp BP Pulse Ox 97.7 F 56 L 20 177/97 H 98 09/09/16 16:00 09/10/16 09:05 09/09/16 16:00 09/10/16 09:05 09/09/16 16:00 Intake and Output: 09/10/16 09/10/16 06:59 18:59 Intake Total 1070 Output Total 1700 Balance -630 - Medications Medications: Current Medications Albuterol/Ipratropium (Duoneb 3 Mg/0.5 Mg (3 Ml) Ud) 3 ml IH Q4H PRN PRN Reason: Wheezing Amlodipine Besylate (Norvasc) 5 mg PO DAILY [facility] Last Admin: 09/10/16 09:05 Dose: 5 mg Carvedilol (Coreg) 3.125 mg PO BID [facility] Last Admin: 09/10/16 09:03 Dose: 3.125 mg Losartan Potassium (Cozaar) 50 mg PO DAILY [facility] Magnesium Oxide (Mag-Ox) 400 mg PO BID [facility] Last Admin: 09/10/16 09:04 Dose: 400 mg Methylprednisolone (Medrol) 4 mg PO DAILY [facility] Last Admin: 09/10/16 09:04 Dose: 4 mg Potassium Chloride (Klor-Con 10) 10 meq PO BRK [facility] Last Admin: 09/10/16 09:04 Dose: 10 meq Warfarin Sodium (Coumadin) 5 mg PO 1800 [facility] PRN Reason: Protocol Last Admin: 09/09/16 17:12 Dose: 5 mg - Labs Labs: 09/07/16 05:00 09/10/16 06:30 PT 19.4 Seconds (9.9-11.8) H 09/07/16 05:00 INR 1.80 (0.93-1.08) H 09/07/16 05:00 APTT 33.4 Seconds (23.7-30.8) H 09/03/16 12:41
[2016-09-11 07:31] LABS: BLOOD UREA NITROGEN 11 mg/dL (7-21); CALCIUM 8.6 mg/dL (8.4-10.5); GFR AFRICAN-AMERICAN > 60; GFR NON-AFRICAN AMERICAN > 60
[2016-09-11 07:53] LABS: T4 8.9 ug/dL (5.5-11.0)
[2016-09-11 08:06] LABS: T3 0.91 ng/mL (0.97-1.69)
[2016-09-11 08:51] VITALS: BP 157/87; RESP 18; TEMP 97.7; O2SAT 97
[2016-09-11] MEDS: Magnesium Oxide 400 mg Tab UD PO SCH (09:09)
[2016-09-11] MEDS: Potassium Chloride 10 mEq ER Tab PO SCH (09:10)
[2016-09-11] MEDS ORDERED: Tolvaptan 15 MG TAB PO ONE (09:36)
--- NOTE | 2016-09-11 10:30 | CP.PCM.PN ---
Subjective - Date & Time of Evaluation Date of Evaluation: 09/11/16 Time of Evaluation: 10:27 - Subjective Subjective: Follow up Nephrology Consultation Note covering for Dr Browne Assessment: Stable Hyponatremia iso-osmolar (serum osmol 294) with relatively hypotonic urine ( urine Na 19 and osmol 184) etiology not clear: improved withh 3% saline and tolvaptan HTN, fall, left wrist fracture suppressed TSH, anemia, A fib Plan redose with tolvaptan 15 mg today since her serum Na down trended. repeat Na at 1:00 PM repeat studies including urine Na and urine osmol, sent lipid and SPEP oral fluid restriction as ordered. avoid correction in serum Na >6-8 meq/day avoid thiazide diuretics. Hypertension control with meds as ordered. Patient's ARB resumed. hold atenolol as pt started on coreg. HR on low side Glycemic control Further work up for as per primary team Thanks for allowing me to participate in care of your patient. Please call if any Qs. Dr Browne will follow for tomorrow if pt planned for d/c to SNF, she is stable from renal perspective and to f/up with Dr Browne in office [place] [address] Thad Dong Office: [phone] Subjective: Noted events overnight. Patients feels okay. Denies chest pain, palpitation, shortness of breath, leg swelling. No urinary complaints. has good appetite. she had fell at home, leading to left wrist fracture. Physical Examination: General Appearance: Comfortable, in no acute respiratory distress, co- operative. Vitals reviewed and noted as below Lungs: Normal respiratory rate/effort. Breath sounds bilateral equal and clear Heart: Normal rate. s1s2 normal. No rub or gallop. Extremities: no edema. left forearm in splint Neurological: Patient is alert, awake and oriented to person, place and time. No focal deficit. Strength bilateral appropriate and equal Skin: Warm and dry. Normal turgor. No rash. Palpitation: Normal elasticity for age Abdomen: Abdomen is soft. Bowel sounds +. There is no abdominal tenderness, no guarding/rigidity or organomegaly : kidney or bladder not palpable Labs/imaging reviewed. Past medical history, past surgical history, family history, social history, allergy reviewed Work up: Urine Na 19 urine osmol 184 uric acid 3.7 TGL 77 BNP 2000 serum osmol 294 TSH 0.45 repeat serum osmol 277 TSH 0.5 Objective - Vital Signs/Intake and Output Vital Signs (last 24 hours): Temp Pulse Resp BP Pulse Ox 97.7 F 60 18 157/87 H 97 09/11/16 09:08 09/11/16 09:10 09/11/16 06:00 09/11/16 09:10 09/11/16 06:00 Intake and Output: 09/11/16 09/11/16 06:59 18:59 Intake Total 480 Output Total 700 Balance -220 - Medications Medications: Current Medications Acetaminophen (Tylenol 325mg Tab) 650 mg PO Q4H PRN PRN Reason: Pain, moderate (4-7) Last Admin: 09/11/16 09:08 Dose: 650 mg Albuterol/Ipratropium (Duoneb 3 Mg/0.5 Mg (3 Ml) Ud) 3 ml IH Q4H PRN PRN Reason: Wheezing Amlodipine Besylate (Norvasc) 5 mg PO DAILY [facility] Last Admin: 09/11/16 09:09 Dose: 5 mg Carvedilol (Coreg) 3.125 mg PO BID [facility] Last Admin: 09/11/16 09:10 Dose: 3.125 mg Losartan Potassium (Cozaar) 50 mg PO DAILY [facility] Last Admin: 09/11/16 09:10 Dose: 50 mg Magnesium Oxide (Mag-Ox) 400 mg PO BID [facility] Last Admin: 09/11/16 09:09 Dose: 400 mg Methylprednisolone (Medrol) 4 mg PO DAILY [facility] Last Admin: 09/11/16 09:17 Dose: 4 mg Potassium Chloride (Klor-Con 10) 10 meq PO BRK [facility] Last Admin: 09/11/16 09:10 Dose: 10 meq Warfarin Sodium (Coumadin) 5 mg PO 1800 [facility] PRN Reason: Protocol Last Admin: 09/10/16 17:14 Dose: 5 mg - Labs Labs: 09/07/16 05:00 09/11/16 06:00 PT 19.4 Seconds (9.9-11.8) H 09/07/16 05:00 INR 1.80 (0.93-1.08) H 09/07/16 05:00 APTT 33.4 Seconds (23.7-30.8) H 09/03/16 12:41
[2016-09-11 10:44] VITALS: PULSE 56
[2016-09-11 11:02] LABS: OSMOLALITY,URINE 485 mosm/kg (50-645)
--- NOTE | 2016-09-11 12:45 | CP.PCM.PN ---
Subjective - Date & Time of Evaluation Date of Evaluation: 09/11/16 Time of Evaluation: 12:30 - Subjective Subjective: nad Objective - Vital Signs/Intake and Output Vital Signs (last 24 hours): Temp Pulse Resp BP Pulse Ox 97.7 F 56 L 18 157/87 H 97 09/11/16 09:08 09/11/16 10:00 09/11/16 06:00 09/11/16 09:10 09/11/16 06:00 Intake and Output: 09/11/16 09/11/16 06:59 18:59 Intake Total 480 Output Total 700 Balance -220 - Medications Medications: Current Medications Acetaminophen (Tylenol 325mg Tab) 650 mg PO Q4H PRN PRN Reason: Pain, moderate (4-7) Last Admin: 09/11/16 09:08 Dose: 650 mg Albuterol/Ipratropium (Duoneb 3 Mg/0.5 Mg (3 Ml) Ud) 3 ml IH Q4H PRN PRN Reason: Wheezing Amlodipine Besylate (Norvasc) 5 mg PO DAILY [facility] Last Admin: 09/11/16 09:09 Dose: 5 mg Carvedilol (Coreg) 3.125 mg PO BID [facility] Last Admin: 09/11/16 09:10 Dose: 3.125 mg Losartan Potassium (Cozaar) 50 mg PO DAILY [facility] Last Admin: 09/11/16 09:10 Dose: 50 mg Magnesium Oxide (Mag-Ox) 400 mg PO BID [facility] Last Admin: 09/11/16 09:09 Dose: 400 mg Methylprednisolone (Medrol) 4 mg PO DAILY [facility] Last Admin: 09/11/16 09:17 Dose: 4 mg Potassium Chloride (Klor-Con 10) 10 meq PO BRK [facility] Last Admin: 09/11/16 09:10 Dose: 10 meq Warfarin Sodium (Coumadin) 5 mg PO 1800 [facility] PRN Reason: Protocol Last Admin: 09/10/16 17:14 Dose: 5 mg - Labs Labs: 09/07/16 05:00 09/11/16 06:00 PT 19.4 Seconds (9.9-11.8) H 09/07/16 05:00 INR 1.80 (0.93-1.08) H 09/07/16 05:00 APTT 33.4 Seconds (23.7-30.8) H 09/03/16 12:41 - Respiratory Exam Respiratory Exam: Clear to Ausculation Bilateral, NORMAL BREATHING PATTERN - Cardiovascular Exam Cardiovascular Exam: REGULAR RHYTHM - GI/Abdominal Exam GI & Abdominal Exam: Soft, Normal Bowel Sounds - Extremities Exam Extremities Exam: Normal Inspection - Neurological Exam Neurological Exam: Alert, Awake - Skin Skin Exam: Dry, Warm Assessment and Plan (1) Atrial fibrillation Status: Chronic (2) CHF (congestive heart failure) Status: Acute (3) Cellulitis Status: Acute (4) Colles' fracture of left radius Status: Acute (5) COPD (chronic obstructive pulmonary disease) Status: Chronic (6) Hyponatremia Status: Acute (7) Hypertension Status: Chronic - Assessment and Plan (Free Text) Plan: monitor lytes, check INR, renal f/u, poosible dc to [facility] today
[2016-09-11 13:12] LABS: INR 4.35 (0.93-1.08)
== END 2016-09-11 17:25 | DRG 562 ==
LOC: ED 11:49 → ERH 15:43 → 3RNO 17:38
PROVIDERS: ADMIT Internal Medicine; ATTEND Internal Medicine
PROC: 0PSJXZZ Reposition Left Radius, External Approach (ICD-10-PCS; principal; 2016-09-03)
PROC: 0PSLXZZ Reposition Left Ulna, External Approach (ICD-10-PCS; 2016-09-03)
DX: S52.532A Colles' fracture of left radius, initial encounter for closed fracture (principal); I50.43 Acute on chronic combined systolic (congestive) and diastolic (congestive) heart failure; I48.2 Chronic atrial fibrillation; E22.2 Syndrome of inappropriate secretion of antidiuretic hormone; J44.9 Chronic obstructive pulmonary disease, unspecified; E83.42 Hypomagnesemia; D64.9 Anemia, unspecified; S52.602A Unspecified fracture of lower end of left ulna, initial encounter for closed fracture; L03.90 Cellulitis, unspecified; S60.212A Contusion of left wrist, initial encounter; W19.XXXA Unspecified fall, initial encounter; I11.0 Hypertensive heart disease with heart failure; E87.6 Hypokalemia; T50.2X5A Adverse effect of carbonic-anhydrase inhibitors, benzothiadiazides and other diuretics, initial encounter; M19.90 Unspecified osteoarthritis, unspecified site; Z79.01 Long term (current) use of anticoagulants; Z87.891 Personal history of nicotine dependence; Y93.89 Activity, other specified; Y92.009 Unspecified place in unspecified non-institutional (private) residence as the place of occurrence of the external cause; Y99.9 Unspecified external cause status